=== PATIENT | female | born 1980 | race Caucasian/White ===

== ENCOUNTER 2016-05-09 16:58 | Emergency (ER) | payer OTHER ==
[~2016-05-09] VITALS: Ht 162.6 cm; Wt 62.6 kg
[2016-05-09 17:03] VITALS: BP 119/68
[2016-05-09] MEDS ORDERED: cefTRIAXone SOD 1,000 MG VL IM ONE (19:30)
[2016-05-09] MEDS ORDERED: IBUPROFEN 600 MG TAB PO ONE (19:30)
== END 2016-05-09 20:24 | disposition home or self-care (01) ==
LOC: ER 16:58 → EDBD 16:58 → ER 20:24
DX: L03.114 Cellulitis of left upper limb (principal); L03.113 Cellulitis of right upper limb; F15.10 Other stimulant abuse, uncomplicated
CPT/HCPCS: 96372; 99283; J0696